=== PATIENT | male | born 2005 | race Two or more races ===

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

== ENCOUNTER 2024-10-31 21:53 | Emergency (ER) | payer MEDICAID, OTHER ==
[~2024-10-31] VITALS: Ht 165.1 cm; Wt 91.7 kg
[~2024-10-31 21:53] MED LIST changes: +IBUP-1456 PO
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
[2024-11-01] MEDS ORDERED: TIZA-142 PO (00:50)
[2024-11-01] MEDS ORDERED: NABU-72 PO (00:50)
[2024-11-01 00:56] VITALS: BP 133/77; PULSE 81; RESP 15; TEMP 97.9; O2SAT 98
== END 2024-11-01 00:57 | disposition home or self-care (01) ==
LOC: MERGE 21:53 → ER 21:53
DX: S13.4XXA Sprain of ligaments of cervical spine, initial encounter (principal); S23.8XXA Sprain of other specified parts of thorax, initial encounter; V43.62XA Car passenger injured in collision with other type car in traffic accident, initial encounter; Y93.I9 Activity, other involving external motion; Y92.488 Other paved roadways as the place of occurrence of the external cause; Y99.8 Other external cause status
CPT/HCPCS: 71046; 72040